=== PATIENT | male | born 1960 | race Caucasian/White ===

== ENCOUNTER 2019-11-16 08:15 | Inpatient (IN) | payer OTHER ==
[~2019-11-16] VITALS: Ht 162.6 cm; Wt 86.2 kg
[2019-11-16] MEDS ORDERED: GLIMEPIRIDE2 M1 (08:31)
[2019-11-16] MEDS ORDERED: GLUMETZA500 MG (08:31)
--- NOTE | 2019-11-16 08:31 | NUR ---
PTE REFERIDO POR DOLOR ABDOMINAL SE FIDELIA S/V YSE UBIAC EN AREA DE OBSERVACION
--- NOTE | 2019-11-16 09:04 | NUR ---
PTE MASCULINO ALERTA Y ORIENTADO EN L[place]ON[place] ESFERAS ES EVALUADO POR . S ORIENTA PTE SOBRE TRATAMIENTO ORDENADO REFIERE COMPRENDER. PROCEDE A COLECTAR MUESTRAS DE LABORATORIO Y CANALIZAR VENA, BAJO MEDIDAS ASEPTICAS. ADMINISTRA MEDICAMENTO, BAJO MEDIDAS ASEPTICAS. SE NOTIFICA A PERSONAL DE RADIOLOGIA PARA CT.
--- NOTE | 2019-11-16 14:58 | NUR ---
SE ORIENTA AL PACIENTE SOBRE MUESTRA DE CHEIKH A COLECTAR (CMP). PACIENTE REFIERE ENTENDER. SE PROCEEDE A COLECTAR LA MUESTRA UTILIZANDO MEDIDAS ASEPTICAS Y MUESTRA ES ENVIADA AL LABORATORIO.
[2019-11-23] MEDS ORDERED: LEVSIN/SL0.125 MG SL (14:09)
[2019-11-23] MEDS ORDERED: ANTI-GAS166 MG PO (14:09)
[2019-11-23] MEDS ORDERED: KETO10TA2 PO (14:10)
== END 2019-11-23 15:37 | disposition home or self-care (01) | DRG 330 ==
LOC: ER 08:15 → SURH 14:48 → SEC-K 14:48 → SURH 19:57
PROVIDERS: ADMIT Surgery; ATTEND Surgery
PROC: 02HV33Z Insertion of Infusion Device into Superior Vena Cava, Percutaneous Approach (ICD-10-PCS; 2019-11-16)
PROC: 3E0436Z Introduction of Nutritional Substance into Central Vein, Percutaneous Approach (ICD-10-PCS; 2019-11-16)
PROC: BW21Y0Z Computerized Tomography (CT Scan) of Abdomen and Pelvis using Other Contrast, Unenhanced and Enhanced (ICD-10-PCS; 2019-11-16)
PROC: 07TB4ZZ Resection of Mesenteric Lymphatic, Percutaneous Endoscopic Approach (ICD-10-PCS; 2019-11-20)
PROC: 0DJD8ZZ Inspection of Lower Intestinal Tract, Via Natural or Artificial Opening Endoscopic (ICD-10-PCS; 2019-11-20)
PROC: 0DTN4ZZ Resection of Sigmoid Colon, Percutaneous Endoscopic Approach (ICD-10-PCS; principal; 2019-11-20 14:15)
DX: C18.7 Malignant neoplasm of sigmoid colon (principal); K56.690 Other partial intestinal obstruction; E11.9 Type 2 diabetes mellitus without complications; F41.8 Other specified anxiety disorders; R59.0 Localized enlarged lymph nodes; Z20.828 Contact with and (suspected) exposure to other viral communicable diseases; Z79.4 Long term (current) use of insulin